=== PATIENT | female | born 1980 | race Caucasian/White ===

== ENCOUNTER 2019-02-11 04:46 | Inpatient (IN) | payer OTHER ==
[~2019-02-11] VITALS: Ht 157.5 cm; Wt 140.2 kg
[2019-02-11 04:53] VITALS: Ht 157.5 cm; Wt 140.2 kg
[2019-02-11 05:11] LABS: BASOPHIL % 0.4 % (0-2); PLATELET COUNT 373 x10^3mcL (130-400); RED CELL DISTRIBUTION WIDTH 14.4 % (11.5-14.5)
[2019-02-11 05:43] LABS: CARBON DIOXIDE 25.5 mmol/L (21-32); CHLORIDE SERUM 103 mmol/L (98-107); CREATININE SERUM 0.8 mg/dL (0.6-1.0); GFR1 > 60 mL/min; GLUCOSE SERUM 136 mg/dL (74-106); POTASSIUM SERUM 3.6 mmol/L (3.5-5.1); SODIUM SERUM 137 mmol/L (136-145)
[2019-02-11 05:50] LABS: ALBUMIN 3.2 g/dL (3.4-5.0); ALKALINE PHOSPHATASE 132 U/L (46-116); ALT/SGPT 242 U/L (14-59); AST/SGOT 440 U/L (15-37); BILIRUBIN TOTAL 0.88 mg/dL (0.20-1.00); LIPASE 14818 IU/L (73-393); TOTAL PROTEIN, SERUM 7.5 g/dL (6.4-8.2)
--- NOTE | 2019-02-11 07:26 | NUR ---
PT REFUSING TO GIVE URINE, STS, "I'M TOO UNCOMFORTBALE".
--- NOTE | 2019-02-11 08:09 | NUR ---
DR WOODARD AT BEDSIDE FOR MSE.
--- NOTE | 2019-02-11 08:14 | NUR ---
PT AMBULATED TO RESTROOM, ASSISTED BY .
--- NOTE | 2019-02-11 08:39 | NUR ---
URINE DIP RESULTS REPORTED TO DR WOODARD.
--- NOTE | 2019-02-11 09:16 | NUR ---
REPORT GIVEN TO FLORENCE GOMEZ, TO ASSUME CARE OF PT.
[2019-02-11] MEDS ORDERED: PROVENTIL0.09 MG/A1 INH (09:19)
--- NOTE | 2019-02-11 09:27 | NUR ---
RECEIVED PT FROM ER VIA W/C. PT A/A, ORIENTED X 4, BREATHING EQUAL/UNLABORED ON RA. PT HAD 6/ 10 PAIN TO ABD. NO REDNESS/ SWELLING TO IV SITE. BED IN LOW POSIITON, CALL LIGHT IN REACH, SAFETY PRECAUTIONS IN PLACE. WILL CONTINUE TO MONITOR
[2019-02-11 09:54] LABS: MAGNESIUM 2.3 mg/dL (1.8-2.4); PHOSPHOROUS 2.9 mg/dL (2.5-4.9)
[2019-02-11 10:48] VITALS: BP 130/51
--- NOTE | 2019-02-11 11:56 | NUR ---
PT LYING IN BED A/A. BREATHING EQUAL/UNLABORED ON RA. PT HAS ABD PAIN, PAIN MED GIVEN. IVF RUNNING AT 150ML/HR. NO REDNESS/ SWELLING TO IV SITE. BED IN LOW POSITON, CALL LIGHT IN REACH, SAFETY PRECAUTIONS IN PLACE, FAMILY AT BED SIDE. WILL CONTINUE TO MONITOR
[2019-02-11 12:35] LABS: microscopic required? NO
[2019-02-11 12:57] VITALS: BP 145/68
--- NOTE | 2019-02-11 14:07 | NUR ---
PT BROUGHT DOWN TO CT VIA W/C. NO ACUTE PAIN/ DISTRESS AT THIS TIME
[2019-02-11 14:38] LABS: urine erythrocyte NEGATIVE (NEGATIVE)
--- NOTE | 2019-02-11 16:34 | NUR ---
PT STATES THAT PAIN IS CONSTANT. CALLED ROSANNA QUINONES TO INFORM HER OF PATIENTS PAIN. PER ROSANNA QUINONES, PT CAN HAVE NORCO, TORADOL, OR MORPHINE AT PRESCRIBED FREQUENCIES. WILL CONTINUE TO MONITOR
[2019-02-11 17:24] VITALS: BP 128/63
--- NOTE | 2019-02-11 18:24 | NUR ---
PT LYING IN BED A/A. BREATHING EQUAL/UNLABORED ON RA. PT C/O MILD ABD PAIN, PAIN MEDICATION GVIEN. IVF RUNNING AT 150ML/HR. NO REDNESS/ SWELLING TO IV SITE. BED IN LOW POSITION, CALL LIGHT IN REACH, SAFETY PRECAUTIONS IN PLACE. WILL ENDORSE TO NIGHT NURSE
--- NOTE | 2019-02-11 19:00 | NUR ---
RECEIVED PT FROM FLORENCE GOMEZ. PT IS AAOX4. PT DENIES HEADACHE OR DIZZINESS AT THIS TIME. PT IS MED-SURG AND DENIES CHEST PAIN OR PRESSURE AT THIS TIME. PT PULSES PALPABLE AND CAP REFILL <3 SEC. PT LUNG SOUNDS CTA ON RA. PT BREATHING EVEN AND UNLABORED. PT DENIES SOB OR RESPIRATORY DISTRESS AT THIS TIME. PT ABD IS SOFT AND ROUND. PT IS OBESE. PT BOWEL SOUNDS ACTIVE X4. PT DENIES N/V/D AT THIS TIME. PT VOIDS FREELY WITH BRP. PT IS AMBULATORY. PT SKIN WARM, DRY, INTACT. PT IV PATENT AND INTACT. IVF INFUSING WELL AT THIS TIME. CALL LIGHT WITHIN REACH. BED IN LOWEST POSITION. SIDE RAILS X2 UP. WILL CONTINUE TO MONITOR.
[2019-02-11 20:17] VITALS: BP 134/70
--- NOTE | 2019-02-11 22:15 | NUR ---
PT SLEEPING, BUT EASILY AROUSABLE. ASSISTED PT TO BATHROOM AND BACK INTO BED. IVF INFUSING WELL. NO ACUTE DISTRESS NOTED. CALL LIGHT WITHIN REACH. BED IN LOWEST POSITION. SIDE RAILS X2 UP. WILL CONTINUE TO MONITOR.
[2019-02-12 04:44] VITALS: BP 104/61
--- NOTE | 2019-02-12 06:08 | NUR ---
PT SLEPT FOR MOST OF THE NIGHT. NO ACUTE DISTRESS NOTED DURING THE SHIFT. PT COMPLIED WITH NURSING CARE THROUGHOUT THE SHIFT. COMFORT AND SAFETY MEASURES MAINTAINED. ALL QUESTIONS AND CONCERNS ADDRESSED. WILL ENDORSE CARE TO DAY SHIFT NURSE. WILL CONTINUE TO MONITOR.
[2019-02-12 06:34] VITALS: BP 122/75
--- NOTE | 2019-02-12 07:18 | NUR ---
ENDORSED CARE TO PARAMJIT GOMEZ. ALL QUESTIONS AND CONCERNS ADDRESSED.
[2019-02-12 07:20] LABS: BASOPHIL % 0.3 % (0-2); PLATELET COUNT 298 x10^3mcL (130-400)
[2019-02-12 07:40] LABS: CALCIUM 7.6 mg/dL (8.5-10.1); CARBON DIOXIDE 23.7 mmol/L (21-32); CHLORIDE SERUM 106 mmol/L (98-107); CREATININE SERUM 0.6 mg/dL (0.6-1.0); GFR1 > 60 mL/min; GLUCOSE SERUM 72 mg/dL (74-106); POTASSIUM SERUM 3.4 mmol/L (3.5-5.1); SODIUM SERUM 139 mmol/L (136-145)
[2019-02-12 08:07] LABS: RED CELL DISTRIBUTION WIDTH 14.8 % (11.5-14.5)
[2019-02-12 08:22] VITALS: BP 104/64
--- NOTE | 2019-02-12 09:57 | NUR ---
AT 0715 - RECEIVED PATIENT FROM NIGHT NURSE. SLEEPING. RESPIRATIONS REGULAR. IV INFUSING NS AT 150 ML/HR. AT 0810 - AWAKE, ALERT AND ORIENTED. REPORTS SOME PAIN AND NUUSEA. NO VOMITING. REMAINS NPO. AT 0840 - MEDICATED WITH NORCO AND ZOFRANA S PER EMAR. AT 0855 - SEEN BY COTTON TIPPER MUTUC. CONTINUING TO MONITOR LIPASE LEVELS. AT 0945 - REPORTS MODERATE RELIEF OF PAIN. RESTING QUIETLY.
[2019-02-12 12:30] LABS: LIPASE 5364 IU/L (73-393)
[2019-02-12 12:31] VITALS: BP 126/66
--- NOTE | 2019-02-12 14:27 | NUR ---
CALLED TO THOMPSON MARTE AND RELAYED THE RESULTS OF LIPASE AND WANTS TO KEEP HER NPO TODAY.
--- NOTE | 2019-02-12 15:30 | NUR ---
AT 1300 - PATIENT HAD SHOWER. FAMILY MEMBERS WITH HER. REMAINS NPO. PAIN UNDER CONTROL WITH NORCO. ENCOURAGED AMBULATION. AT 1330 - AMBULATING IN HALLWAY. SPOKE WITH ROSANNA HIDALGO REGARDING LATEST LIPASE LEVEL. PATIENT TO REMAIN NPO TODAY.
[2019-02-12 17:57] VITALS: BP 112/72
--- NOTE | 2019-02-12 18:57 | NUR ---
QUIET AFTERNOON. VSS. AFEBRILE. IV INFUSING NS AT 150 ML/HR. REMAINS NPO EXCEPT MEDS. PAIN UNDER CONTROL WITH PO NORCO. FAMILY WITH PATIENT IN ROOM. WILL ENDORSE CARE TO NIGHT NURSE.
--- NOTE | 2019-02-12 20:08 | NUR ---
RECEIVED PT FROM AM SHIFT, PT IS A/O X4, VERBAL RESPONSIVE. LUNG SOUND CLEAR VALERIE, NO COUGH, NO SOB. PT DENY ANY CHEST PAIN OR DISCOMFORT, BOWEL SOUND PRESENT ALL 4 QUADRANTS, DENY ANY ABD PAIN AT THIS MOMENT. PT STATE JUST RECEIVED A NORCO NOT A WHILE AGO. SHE FELT CHELI AT THIS MOMENT. PEDAL PULSE PRESENT BOTH FEET, NO EDEMA, IV AT RIGHT HAND, NO LEAKING, NO INFILTRATION. ALL ADLS ASSIST, ALL NEED MET, CALL LIGHT IN REACH, WILL CONTINUE TO MONITOR.
[2019-02-12 20:55] VITALS: BP 131/67
--- NOTE | 2019-02-12 23:15 | NUR ---
PT RECIEVED FROM RUPERT GOMEZ. PT RESTING IN BED AT THIS TIME. DENIES CP, NV, DIZZINESS, OR PALPATATIONS. NO ACUTE DISTRESS NOTED AT THIS TIME. BED AT LOWEST POSITION. CALL LIGHT WITHIN REACH. WILL CONTINUE TO MONITOR.
--- NOTE | 2019-02-12 23:22 | NUR ---
ENDORSE PT TO MEGHANN GOMEZ.
[2019-02-13 04:58] VITALS: BP 118/64
--- NOTE | 2019-02-13 06:15 | NUR ---
PT RESTING IN BED AT THIS TIME. DENIES PAIN OR DISCOMFORT. BREATHING E/U ON RA AT THIS TIME. NO SIGNS OF ACUTE DISTRESS AT THIS TIME. ALL NEEDS AND CONCERNS ADDRESSED THIS SHIFT. BED AT LOWEST POSITION. CALL LIGHT WITHIN REACH. WILL CONTINUE TO MONITOR.
[2019-02-13 08:15] VITALS: BP 137/58
[2019-02-13 12:03] VITALS: BP 133/70
[2019-02-13 16:50] VITALS: BP 115/75
--- NOTE | 2019-02-13 18:33 | NUR ---
PATIENT IS CURRENTLY RESTING IN BED WITH FAMILY PRESENT. PATIENT DENIES ANY PAIN OR DISCOMFORT AT THIS TIME. ALL QUESTIONS AND CONCERNS HAVE BEEN ADDRESSED. WILL CONTINUE TO MONITOR.
--- NOTE | 2019-02-13 19:30 | NUR ---
PT RECIEVED FROM DAY NURSE. PT RESTING IN BED AT THIS TIME, DENIES PAIN OR DISCOMFORT. A/O X4, CALM AND COOPERATIVE AT THIS TIME. PT MS, DENEIS CP, NV, DIZZINESS, OR PALPATIONS. PALPABLE PULSES, NO EDEMA NOTED AT THIS TIME.BREATHING E/U ON RA. ABD SOFT AND ROUND, DENIES PAIN TO PALPATION. PT AMBULATORY AT BASELINE. IV TO RH, INTACT AND INFUSING. BED AT LOWEST POSITON. CALL LIGHT WITHIN REACH. WILL CONTINUE TO MONTIOR .
[2019-02-13 20:59] VITALS: BP 131/76
--- NOTE | 2019-02-14 | NUR ---
PT RESTING IN BED AT THIS TIME. BEATHING E/U ON RA. NO SIGNS OF ACUTE DISTRESS AT THIS TIME. ALL NEEDS AND CONCERNS ADDRESSED AT THIS TIME. BED AT LOWEST POSITION.CALL LIGHT WITHIN REACH. WILL CONTINUE TO MONITOR.
[2019-02-14 05:41] VITALS: BP 131/82
--- NOTE | 2019-02-14 06:33 | NUR ---
PT RESTING IN BED AT THIS TIME. COMPLAINED OF ABD PAIN, MEDICATED WITH PRN NORCO. NO SIGNS OF ACUTE DISTRESS NOTED. ALL NEEDS AND CONCERNS ADDRESSED THIS SHIFT. BED AT LOWEST POSITION. CALL LIGHT WITHIN REACH WILL CONTINEU TO MONITOR.
--- NOTE | 2019-02-14 07:25 | NUR ---
RECEIVED PATIENT AWAKE/ALERT IN BED, NO C/O ABD PAIN AT THIS TIME. M/S. IV TO RH INTACT AND INFUSING AT 150ML/HR, PATENT. ON CLEAR LIQUID DIET. POC DISCUSS. CALL LIGHT WITHIN REACH.
[2019-02-14 07:41] VITALS: BP 123/52
--- NOTE | 2019-02-14 10:52 | NUR ---
PATIENT SAT UP AT SIDE OF BED NO C/O PAIN, COLACE PO ADMINISTERED AND PATIENT TOLERATED CLEAR LIQUID DIET. NO C/O ANUSEA. PATIENT REQUEST FOR WORK EXCUSE WILL CALL ROSANNA MACKAY. NEEDS MET.
--- NOTE | 2019-02-14 11:30 | NUR ---
GAVE REPORT TO FLORENCE TO RESUME CARE. SPOKE TO [employer]ABLE SUPERVISOR THOMPSON FOR WORK NOTES.
[2019-02-14 12:05] VITALS: BP 121/85
--- NOTE | 2019-02-14 12:44 | NUR ---
PT IN BATHROOM, A/A. BREATHING EQUAL/UNLABORED ON RA. NO ACUTE PAIN/ DISTRESS. IV SITE WNL. FAMILY IN ROOM, WILL CONTINUE TO MONITOR
[2019-02-14 12:46] VITALS: BP 123/52
--- NOTE | 2019-02-14 13:09 | NUR ---
PT DC'D HOME. PT A/A, ORIENTED X 4, BREATHING EQUAL/UNLABORED ON RA, NO ACUTE PAIN/ DISTRESS. IV REMOVED WITH CATHETER INTACT, SITE WNL. DISCHARGE INSTRUCTIONS/ EDUCATION, F/U APPT, AND CONTINUED MEDICATIONS DISCUSSED WITH PT, PT VERBALIZED UNDERSTANDING. ALL QUESTIONS/ CONCERNS ADDRESSED. PT BROUGHT DOWN TO LOBBY VIA W/C, ACCOMPANIED BY FAMILY AND FINAL INSPECTOR PAPER. ALL BELONGINGS WITH PT
== END 2019-02-14 13:08 | disposition home or self-care (01) | DRG 439 ==
LOC: ED 04:46 → MU 08:45
PROVIDERS: ADMIT General Practice
DX: K85.90 Acute pancreatitis without necrosis or infection, unspecified (principal); Z68.43 Body mass index [BMI] 50.0-59.9, adult; E66.9 Obesity, unspecified; Z88.0 Allergy status to penicillin; Z88.1 Allergy status to other antibiotic agents
CPT/HCPCS: G0378; J1885; J2270; J2405; J3535; J7030; Q0092